=== PATIENT | female | born 1975 | race Caucasian/White ===

== ENCOUNTER 2021-09-17 23:15 | Emergency (ER) | payer OTHER ==
[2021-09-17] MEDS ORDERED: CEFAZOLIN SODIUM 1 GM/VIAL ONE (23:37)
[2021-09-17] MEDS ORDERED: TETANUS & DIPHTHERIA TOX,ADULT 0.5 ML VIAL ONE (23:38)
[2021-09-17] MEDS ORDERED: NA CHLORIDE 0.9% 50 ML ONE (23:40)
[2021-09-17 23:43] LABS: Absolute Lymphocytes (CBC) 2.9 K/uL (0.7-4.9); Hematocrit 37.3 % (36.0-45.0); Lymphocytes % 42.7 % (15.3-44.8); RBC Red Blood Cell Count 4.19 M/uL (3.86-4.86)
[2021-09-17 23:52] LABS: BUN Blood Urea Nitrogen 10 mg/dL (7-18); Bicarbonate 26 mmol/L (21-32); Glucose Level 112 mg/dL (74-106); Potassium 3.5 mmol/L (3.5-5.1); Sodium Level 134 mmol/L (136-145)
[2021-09-17] MEDS ORDERED: ONDANSETRON 4 MG/2 ML VIAL ONE (23:53)
[2021-09-17] MEDS ORDERED: MORPHINE 4 MG/ML SYR ONE (23:53)
[2021-09-18] MEDS ORDERED: LIDOCAINE 1% W/EPI 1:100,000 MDV 50 ML VIAL ONE (00:48)
[2021-09-18] MEDS ORDERED: LORazepam 2 MG/ML VIAL ONE (01:04)
[2021-09-18] MEDS ORDERED: MORPHINE 4 MG/ML SYR ONE (01:44)
--- NOTE | 2021-09-18 02:05 | EDPHYS ---
Physician Documentation [facility] Name: Laquita Abdi Age: 46 yrs Sex: Female : 1975 Arrival Date: 09/17/2021 Time: 23:19 Bed 4 Private MD: ED Physician Luis E Gerardo HPI: 09/17 23:30 This 46 yrs old Female presents to ER via EMS with complaints of Right Leg Injury. cp 23:30 The patient presents with an injury, a laceration, clean. The complaints affect the cp anterior right knee and medial aspect of right knee and lateral aspect of right knee. 23:30 Context: resulted from the patient falling, while walking, in bathroom onto tile floor, cp the patient can fully bear weight, Problem is a result from a previous injury: No. Onset: The symptoms/episode began/occurred just prior to arrival. Associated signs and symptoms: Pertinent positives: swelling, ecchymosis, Pertinent negatives fever. Treatment prior to arrival includes: no previous treatment. 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 Last tetanus immunization: unknown. - Social history:: Smoking status: Patient reports the use of cigarette tobacco products, smokes one pack cigarettes per day. Patient uses alcohol, only on a social basis. Patient/guardian denies using street drugs, IV drugs. ROS: 23:35 MS/extremity: Positive for injury or acute deformity, ecchymosis, laceration, of the cp anterior aspect right knee, Negative for paresthesias. 23:35 Eyes: Negative for injury, pain, redness, and discharge. cp 23:35 Constitutional: Negative for body aches, chills, fever, poor PO intake. 23:35 ENT: Negative for ear pain, sore throat, difficulty swallowing, difficulty handling secretions. 23:35 Cardiovascular: Negative for chest pain, palpitations. 23:35 Respiratory: Negative for cough, shortness of breath, wheezing. 23:35 Abdomen/GI: Negative for abdominal pain, nausea, vomiting, and diarrhea, constipation. 23:35 Back: Negative for pain at rest, pain with movement. 23:35 Neuro: Negative for altered mental status, dizziness, headache, loss of consciousness, numbness, syncope, weakness. 23:35 All other systems are negative. Exam: 23:40 Constitutional: The patient appears in no acute distress, alert, awake, non-toxic, well cp developed, well nourished. 23:40 Head/Face: Normocephalic, atraumatic. cp 23:40 Eyes: Periorbital structures: appear normal, Conjunctiva: normal, no exudate, no injection, Lids and lashes: appear normal, bilaterally. 23:40 ENT: External ear(s): Nose: is normal, Mouth: Lips: moist, Oral mucosa: moist, Posterior pharynx: Airway: no evidence of obstruction, patent. 23:40 Neck: ROM/movement: is normal, is supple, without pain, no range of motions limitations. 23:40 Chest/axilla: Inspection: normal, Palpation: is normal, no crepitus, no tenderness. 23:40 Cardiovascular: Rate: normal, Rhythm: regular. 23:40 Respiratory: the patient does not display signs of respiratory distress, Respirations: normal, Breath sounds: are clear throughout, no decreased breath sounds, no stridor, no wheezing. 23:40 Abdomen/GI: Inspection: abdomen appears normal, Palpation: abdomen is soft and non-tender, in all quadrants. 23:40 Back: pain, is absent, ROM is normal. 23:40 Musculoskeletal/extremity: Extremities: grossly normal except: noted in the anterior aspect lower knee and medial aspect of right lower right knee and lateral aspect of right lower right knee: ROM: full active range of motion, in the right knee, Pulses: noted to be 2+ in the right dorsalis pedis artery, the right leg Sensation intact. Tendon exam: specific tendon testing normal through active and passive range of motion 23:40 Skin: injury, laceration(s), the wound is approximately 25 cm(s), of the medial aspect of right knee and anterior aspect of right knee and lateral aspect of right knee, that can be described as clean, no foreign body, linear, mild bleeding. Vital Signs: 23:19 BP 122 / 102; Pulse 98; Resp 19 S; Pulse Ox 100% on R/A; Weight 88.45 kg (R); Height 5 lg3 ft. 9 in. (175.26 cm) (R); Pain 10/10; 23:30 BP 123 / 90; Pulse 93; Resp 16; Pulse Ox 100% on R/A; st1 09/18 00:00 BP 114 / 83; Pulse 88; Resp 16; Pulse Ox 100% on R/A; st1 01:06 BP 133 / 96; Pulse 92; Resp 14; Pulse Ox 98% on R/A; Pain 0/10; tw5 01:43 BP 119 / 78; Pulse 92; Resp 16; Pulse Ox 97% on R/A; tw5 02:37 BP 120 / 65; Pulse 90; Resp 16; Pulse Ox 100% on R/A; Pain 0/10; st1 03 23:19 Body Mass Index 28.80 (88.45 kg, 175.26 cm) lg3 Laceration: 02:01 Wound Repair of 25cm ( 9.8in ) subcutaneous laceration to medial aspect of right knee cp and lateral aspect of right knee and anterior aspect of right knee. Linear shaped.. Distal neuro/vascular/tendon intact. Anesthesia: Wound infiltrated with 16 mls of Lido/Marcaine. Wound prep: Moderate cleansing by nurse by me, Wound irrigation by me. Skin closed with 34 1-0 Clyde using staple gun. Dressed with Bacitracin, 4x4's, Kerlix. Patient tolerated well. MDM: 09/17 23:31 Patient medically screened. 09/18 00:45 Physician consultation: Tien Lindquist MD was called at 00:45, was contacted at 00:45, regarding patient's condition, recommends wound closure in ED and outpatient f/u for wound management. 01:00 Physician consultation: Ian Long MD was called at 01:00, was contacted at 01:00, regarding patient's condition, outpatient follow-up, Monday recommends wound closure and outpatient f/u. 02:05 Data reviewed: vital signs, nurses notes, radiologic studies, plain films. cp 02:05 Test interpretation: by ED physician or midlevel provider: plain radiologic studies. Counseling: I had a detailed discussion with the patient and/or guardian regarding: the historical points, exam findings, and any diagnostic results supporting the discharge/admit diagnosis, radiology results, the need for outpatient follow up, plastic surgery, to return to the emergency department if symptoms worsen or persist or if there are any questions or concerns that arise at home. Response to treatment: the patient's symptoms have markedly improved after treatment, and as a result, I will discharge patient. 09/17 23:28 Order name: CBC with Diff; Complete Time: 01:59 cp 09/17 23:28 Order name: BMP; Complete Time: 01:59 cp 09/18 01:59 Interpretation: Normal except: NA 134; GLUC 112. cp 09/17 23:28 Order name: XRAY Tib Fib RIGHT cp 09/17 23:28 Order name: XRAY Femur RIGHT cp 09/17 23:28 Order name: IV; Complete Time: 23:31 cp 09/18 02:08 Order name: Crutches; Complete Time: 02:33 cp Administered Medications: 09/17 23:44 Drug: Ancef (cefazolin) 1 grams Route: IVPB; Site: right antecubital; sm5 23:44 Drug: Tetanus-Diphtheria Toxoid Adult 0.5 ml {Fructose Loader: [employer]. Exp: sm5 12/04/2022. Lot #: [id number]. } Route: IM; Site: left deltoid; 23:55 CANCELLED (Duplicate Order): Zofran (ondansetron) 4 mg IM once st1 23:55 Drug: morphine 4 mg Route: IVP; Site: right antecubital; st1 23:55 Drug: Zofran (Ondansetron) 4 mg Route: IVP; Site: right antecubital; st1 09/18 01:04 Drug: Ativan (LORazepam) 1 mg Route: IVP; Site: right antecubital; tw5 01:19 Follow up: Response: No adverse reaction; Anxiety decreased; RASS: Alert and Calm (0) tw5 01:41 Drug: morphine 2 mg Route: IVP; Site: right antecubital; tw5 Disposition: 23:09 Co-signature as Attending Physician, Luis E Gerardo MD. [email or web address] Disposition Summary: 09/18/21 02:05 Discharge Ordered Location: Home cp Problem: new cp Symptoms: have improved cp Condition: Stable cp Diagnosis - Laceration without foreign body of knee - right knee cp Followup: cp - With: Ian Long MD - When: 09/21/2021 - Reason: Wound Recheck Discharge Instructions: - Discharge Summary Sheet cp - Crutch Use, Adult cp - Laceration Care, Adult cp - How to Use a Knee Immobilizer cp Forms: - Medication Reconciliation Form cp - Thank You Letter cp - Antibiotic Education cp - Prescription Opioid Use cp Prescriptions: - Cephalexin 500 mg Oral Capsule - take 1 capsule by ORAL route every 6 hours for 10 days; 40 capsule; Refills: 0, cp Product Selection Permitted - Ibuprofen 800 mg Oral Tablet - take 1 tablet by ORAL route every 8 hours As needed take with food; 30 tablet; cp Refills: 0, Product Selection Permitted - Tylenol-Codeine #3 300 mg-30 mg Oral - take 2 tablet by ORAL route every 8-10 hours; 15 tablet; Refills: 0, Product cp Selection Permitted Signatures: Dispatcher [employer] EDMS Daniel Bundy PA PA cp Virginia Charles RN RN lg3 Luis E Gerardo MD MD 7 Elba Holloway 5 Aimee Farias RN RN sm5 Opal Nichols RN RN st1 Corrections: (The following items were deleted from the chart) 09/17 23:55 23:54 Zofran (ondansetron) 4 mg IM once ordered. st1 st1
--- NOTE | 2021-09-18 02:05 | ER ---
Nurse's Notes [facility] Name: Laquita Abdi Age: 46 yrs Sex: Female : 1975 Arrival Date: 09/17/2021 Time: 23:19 Bed 4 Private MD: Diagnosis: Laceration without foreign body of knee-right knee Presentation: 09/17 23:19 Chief complaint: Patient states: fell after shower on wet tile. hit ledge where tile lg3 and wood meet together. Coronavirus screen: Client denies travel out of the [place] in the last 14 days. At this time, the client does not indicate any symptoms associated with coronavirus-19. Ebola Screen: No symptoms or risks identified at this time. Initial Sepsis Screen: Does the patient meet any 2 criteria? No. Patient's initial sepsis screen is negative. Does the patient have a suspected source of infection? No. Patient's initial sepsis screen is negative. Risk Assessment: Do you want to hurt yourself or someone else? Patient reports no desire to harm self or others. Onset of symptoms was September 17, 2021 at 23:00. 23:19 Method Of Arrival: [facility] lg3 23:19 Acuity: [facility]AN[facility] 2 lg3 Triage Assessment: 23:22 General: Appears in no apparent distress. uncomfortable, Behavior is calm, cooperative. lg3 Pain: Complains of pain in right leg Pain currently is 10 out of 10 on a pain scale. EENT: No deficits noted. No signs and/or symptoms were reported regarding the EENT system. Neuro: No deficits noted. Level of Consciousness is awake, alert, obeys commands, Oriented to person, place, time, situation. Cardiovascular: No deficits noted. Denies chest pain, nausea, shortness of breath, vomiting. Respiratory: No deficits noted. Airway is patent Trachea midline Respiratory effort is even, unlabored, Respiratory pattern is regular, symmetrical. GI: No deficits noted. No signs and/or symptoms were reported involving the gastrointestinal system. Abdomen is round non-distended. : No deficits noted. No signs and/or symptoms were reported regarding the genitourinary system. Derm: Wound noted lateral aspect of right knee, medial aspect of right knee and right knee. Musculoskeletal: Circulation, motion, and sensation intact. Capillary refill < 3 seconds, Range of motion: intact in all extremities. Injury Description: Avulsion sustained to lateral aspect of right knee, medial aspect of right knee and right knee. 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 Last tetanus immunization: unknown. - Social history:: Smoking status: Patient reports the use of cigarette tobacco products, smokes one pack cigarettes per day. Patient uses alcohol, only on a social basis. Patient/guardian denies using street drugs, IV drugs. Screenin:27 Abuse screen: Denies threats or abuse. Denies injuries from another. Nutritional lg3 screening: No deficits noted. Tuberculosis screening: No symptoms or risk factors identified. Fall Risk Fall in past 12 months (25 points). Assessment: 09/18 00:30 Reassessment: The patients right leg was cleaned with Sterile Water. The patient st1 tolerated it well. 00:49 General:. Derm:. Injury Description: Avulsion. tw5 01:06 General: "I am just feel like this isn't right, this don't feel right" Patient tw5 referring to provider stapling up leg. "I thought I was going to surgery.". General: Behavior is cooperative, anxious. 01:09 Neuro: Level of Consciousness is awake, alert, obeys commands, Oriented to person, tw5 place, time, situation, Intact. Respiratory: Airway is patent Trachea midline. 01:10 General: Daniel Bundy Stated he spoke to Dr. Huntley with plastic surgery for Laquita to tw5 follow up with on Monday.. Pain: Denies pain. 01:14 Injury Description: Wound cleaned with NS irrigation. tw5 Vital Signs: 09/17 23:19 BP 122 / 102; Pulse 98; Resp 19 S; Pulse Ox 100% on R/A; Weight 88.45 kg (R); Height 5 lg3 ft. 9 in. (175.26 cm) (R); Pain 10/10; 23:30 BP 123 / 90; Pulse 93; Resp 16; Pulse Ox 100% on R/A; st1 03 00:00 BP 114 / 83; Pulse 88; Resp 16; Pulse Ox 100% on R/A; st1 01:06 BP 133 / 96; Pulse 92; Resp 14; Pulse Ox 98% on R/A; Pain 0/10; tw5 01:43 BP 119 / 78; Pulse 92; Resp 16; Pulse Ox 97% on R/A; tw5 02:37 BP 120 / 65; Pulse 90; Resp 16; Pulse Ox 100% on R/A; Pain 0/10; st1 09/17 23:19 Body Mass Index 28.80 (88.45 kg, 175.26 cm) lg3 ED Course: 09/17 23:19 Patient arrived in ED. lg3 23:19 Daniel Bundy PA is PHCP. cp 23:19 Luis E Gerardo MD is Attending Physician. cp 23:20 Aimee Farias RN is Primary Nurse. 5 23:22 Triage completed. lg3 23:22 Arm band placed on right wrist. lg3 23:27 Patient has correct armband on for positive identification. Placed in gown. Bed in low lg3 position. Call light in reach. Side rails up X 1. blower and compressor assembler on. Pulse ox on. NIBP on. Door closed. Pillow given. 23:37 CBC with Diff Sent. sm5 23:37 BMP Sent. 5 09/18 00:10 XRAY Tib Fib RIGHT In Process Unspecified. EDMS 00:10 XRAY Femur RIGHT In Process Unspecified. EDMS 01:06 Assist provider with laceration repair on right knee that was between 20.1 to 30.0 cm tw5 using rosalie. Set up tray. Performed by Daniel MTZ. 02:03 Ian Long MD is Referral Physician. cp 02:33 IV discontinued, intact, bleeding controlled, No redness/swelling at site. Pressure st1 dressing applied. 02:34 patient was educated on crutch walking. patient was receptive. st1 02:35 Crutch training done. Knee immobilizer applied on right knee. st1 Administered Medications: 09/17 23:44 Drug: Ancef (cefazolin) 1 grams Route: IVPB; Site: right antecubital; sm5 23:44 Drug: Tetanus-Diphtheria Toxoid Adult 0.5 ml {Transitional Care Nurse: [employer]. Exp: sm5 12/04/2022. Lot #: [id number]. } Route: IM; Site: left deltoid; 23:55 CANCELLED (Duplicate Order): Zofran (ondansetron) 4 mg IM once st1 23:55 Drug: morphine 4 mg Route: IVP; Site: right antecubital; st1 23:55 Drug: Zofran (Ondansetron) 4 mg Route: IVP; Site: right antecubital; st1 0305 01:04 Drug: Ativan (LORazepam) 1 mg Route: IVP; Site: right antecubital; tw5 01:19 Follow up: Response: No adverse reaction; Anxiety decreased; RASS: Alert and Calm (0) tw5 01:41 Drug: morphine 2 mg Route: IVP; Site: right antecubital; tw5 Outcome: 02:05 Discharge ordered by MD. marrero 02:36 Discharged to home st1 02:36 Condition: improved 02:36 Discharge instructions given to patient, significant other, Instructed on discharge instructions, follow up and referral plans. no drinking with medication, medication usage, crutch walking, wound care, Demonstrated understanding of instructions, follow-up care, medications, Prescriptions given X 3. 02:38 Patient left the ED. st1 Signatures: Dispatcher [employer] EDMS Daniel Bundy PA PA cp Gibson, Lacie, RN RN lg3 Elba Holloway tw5 Aimee Farias RN RN 5 Opal Nichols RN RN st1 Corrections: (The following items were deleted from the chart) 01:14 01:06 Assist provider with laceration repair on right knee that was between 20.1 to tw5 30.0 cm using rosalie. Set up tray. Performed by Daniel MTZ tw5 01:14 01:10 General: Daniel Bundy Stated he spoke to Dr. Huntley for Laquita to follow up with tw5 on monday.. tw5
[2021-09-18 02:49] VITALS: BP 120/65; O2SAT 100
--- NOTE | 2021-09-18 21:47 | RAD REPORT ---
EXAM DESCRIPTION: RAD - Tib Fib Right - 09/18/2021 12:10 am CLINICAL HISTORY: 46 years, Female, fall COMPARISON: None. FINDINGS: 2 X-ray views of the right tibia and fibula. (Frontal lateral views) were performed. The re is a large area of anterior soft tissue gap within the region of the infrapatellar region. Finding s suggest intact infrapatellar tendon. No radiopaque foreign body could be seen. No areas of acute sary ny injuries were demonstrated. No gross articular abnormality is identified. There are no gross i ntraosseous lesions. No periosteal reaction were seen. IMPRESSION: Large area of anterior soft tissue gap within the infrapatellar region.. No evidence for acute bony injuries. Electronically signed by: Issa Barcenas MD 09/18/2021 12:22 AM DRIVER OPERATOR Due to temporary technical issues with the PACS/Fluency reporting system, reports are being signed by the in house radiologists without review as a courtesy to insure prompt reporting. The interpreting radiologist is fully responsible for the content of the report.
--- NOTE | 2021-09-18 21:48 | RAD REPORT ---
EXAM DESCRIPTION: RAD - Femur Right - 09/18/2021 12:10 am CLINICAL HISTORY: 46 years, Female, PAIN Femur Right COMPARISON: None. FINDINGS: 2 X-ray views of the Right femur were performed. There is no acute fracture or dislocation. There is no focal soft tissue swelling. There are no retained opaque foreign bodies. Limited evaluation of the knee and hip joints demonstrate no gross abnormalities. The bony pelvis is grossly normal in appearance. Area of soft tissue gap within the anterior aspect of the lower knee/infrapatellar area. IMPRESSION: Area of soft tissue gap within the anterior aspect of the lower knee/infrapatellar area. 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 The interpreting radiologist is fully responsible for the content of the report.
== END 2021-09-18 02:38 | disposition home or self-care (01) ==
LOC: ER 23:15
PROC: 0JQN0ZZ Repair Right Lower Leg Subcutaneous Tissue and Fascia, Open Approach (ICD-10-PCS; principal; 2021-09-18)
DX: S81.011A Laceration without foreign body, right knee, initial encounter (principal); W18.30XA Fall on same level, unspecified, initial encounter; Y93.01 Activity, walking, marching and hiking; Z23 Encounter for immunization; F17.210 Nicotine dependence, cigarettes, uncomplicated
CPT/HCPCS: 85025; 80048; 36415; 73552; 73590; 90471; 90714; 96375; 96374; 99285; 12006; J2405; J0690

== ENCOUNTER 2021-09-23 07:20 | Day surgery (SDC) | payer OTHER ==
[2021-09-23 08:17] LABS: Hematocrit 38.7 % (36.0-45.0); Lymphocytes % 32.6 % (15.3-44.8); MPV 6.8 fL (7.6-11.3)
[2021-09-23] MEDS ORDERED: ACETAMINOPHEN 500 MG TAB PO ONE (08:30)
[2021-09-23] MEDS ORDERED: CELECOXIB 100 MG CAPSULE PO ONE (08:30)
--- NOTE | 2021-09-23 08:45 | RAD REPORT ---
EXAM DESCRIPTION: RAD - Chest Single View - 09/23/2021 8:41 am CLINICAL HISTORY: PREOP Chest pain. COMPARISON: No comparisons FINDINGS: Portable technique limits examination quality. The lungs are grossly clear. The heart is normal in size. No displaced fractures. IMPRESSION: No acute intrathoracic process suspected.
[2021-09-23] MEDS ORDERED: LIDOCAINE 1% MPF 5 ML VIAL ONE (09:05)
[2021-09-23] MEDS ORDERED: MIDAZOLAM HCL 2 MG/2 ML INJ ONE (09:05)
[2021-09-23] MEDS ORDERED: propofoL 200 MG/20 ML VIAL IV ONE (09:05)
[2021-09-23] MEDS ORDERED: FENTANYL CITR 100 MCG/2 ML ONE (09:05)
[2021-09-23] MEDS ORDERED: METOCLOPRAMIDE 10 MG/2mL INJ ONE (09:06)
[2021-09-23] MEDS ORDERED: KETOROLAC 30 MG/ML INJ ONE (09:35)
[2021-09-23] MEDS: HYDROMORPHONE HCL 1 MG/ML INJ ONE ×4 (10:39→11:05)
[2021-09-23] MEDS ORDERED: ONDANSETRON 4 MG/2 ML VIAL ONE ×2 (10:41→12:00)
[2021-09-23] MEDS ORDERED: Ringers Lactate 1,000 ML IV ONE (11:01)
[2021-09-23] MEDS ORDERED: CODEINE 30MG/APAP 300MG TAB ONE (11:42)
[2021-09-23 12:22] VITALS: BP 104/68; TEMP 96.3; O2SAT 99
--- NOTE | 2021-09-23 21:09 | HP ---
Date of Admission: 09/23/2021 History Of Present Illness: The patient is a 46-year-old white female, who 5 days prior to office vi sit fell. The wound was compressed inferiorly. Inferior based flap of skin and subcutane ous tissue developed off the bone level closed with rosalie given and referred. Past Medical History: She has no medical problems. Past Surgical History: No previous surgery. Social History: She does smoke a pack a day. Does not drink. Allergies: SHE HAS NO ALLERGIES. Medications: She is on Keflex, antibiotics from the emergency room. Review of Systems: Otherwise unremarkable. Physical Examination: Vital Signs: She is 5 feet 9 inches, 190 pounds. Extremities: She has flap U shaped distally-based of the right leg below the level of the patella. It is approximately a 15-cm incision. Assessment: Ischemic flap. Plan: Debridement, flap advancement with VAC, skin graft. LETITIA/JOSSIE Voice ID: [id number]
--- NOTE | 2021-09-28 14:10 | OP ---
Surgeon: Ian Long MD Preoperative Diagnosis: Open wound of the right leg. Postoperative Diagnosis: Open wound of the right leg. Procedure: Debridement of skin and subcutaneous tissue, evacuation of hematoma, flap advancement margo sure. Anesthesia: General. Procedure In Detail: After satisfactory induction of general anesthesia, the right leg was prepped w ith Betadine scrub and Betadine paint,. Dry sterile drapes were applied in sterile manner. Drummond were removed. The distally based U-shaped flap had ischemic edges that were cut back to active bleed ing. This was removed approximately 2-3 cm in the vertical direction and approximately 15 cm horizon tally. It was sent to pathology. The wound was then jet lavaged, irrigated with 3 L of dilute Betad ine solution. Hematomas were evacuated. A 10 SHANELLE drain was brought inferiorly, sewn in place with 2- 0 silk and the wound was closed by flap advancement. The patellar area was undermined and advanced d istally. The inferior fold was undermined from the trauma. It was advanced cephalad and the wound c losed with vertical mattress of 2-0 nylon and rosalie. Dressed with Xeroform, Kerlix, and a knee imm obilizer with the knee in extension. The patient tolerated procedure well and returned to Recovery. LETITIA/JOSSIE Voice ID: [id number] Report ID: [id number]
== END 2021-09-23 12:15 | disposition home or self-care (01) ==
LOC: OR 07:20
PROVIDERS: ATTEND Specialist
PROC: 0JXN0ZZ Transfer Right Lower Leg Subcutaneous Tissue and Fascia, Open Approach (ICD-10-PCS; 2021-09-23)
PROC: 0JBN0ZZ Excision of Right Lower Leg Subcutaneous Tissue and Fascia, Open Approach (ICD-10-PCS; 2021-09-23)
PROC: 0JBN0ZZ Excision of Right Lower Leg Subcutaneous Tissue and Fascia, Open Approach (ICD-10-PCS; principal; 2021-09-23 09:00)
DX: S81.801A Unspecified open wound, right lower leg, initial encounter (principal); Z20.822 Contact with and (suspected) exposure to COVID-19
CPT/HCPCS: 11042; 14021; 93005; 87070; 85025; 36415; 87205; 81025; 88304; 87075; 71045; U0003; J2704; J2765; J2250; J3010; J1170 ×2; J7120; J2405 ×2

== ENCOUNTER 2021-10-12 07:28 | Day surgery (SDC) | payer OTHER ==
[2021-10-12 07:45] LABS: Specific Gravity 1.025 (1.005-1.030)
[2021-10-12] MEDS ORDERED: NA CHLORIDE 0.9% 50 ML ONE (07:47)
[2021-10-12] MEDS ORDERED: CEFAZOLIN SODIUM 1 GM/VIAL ONE (07:47)
[2021-10-12] MEDS ORDERED: Ringers Lactate 1,000 ML IV ONE (07:47)
[2021-10-12 07:58] LABS: Absolute Lymphocytes (CBC) 1.6 K/uL (0.7-4.9); Hematocrit 37.7 % (36.0-45.0); Lymphocytes % 30.8 % (15.3-44.8); MPV 7.2 fL (7.6-11.3); RBC Red Blood Cell Count 4.23 M/uL (3.86-4.86)
[2021-10-12] MEDS ORDERED: FENTANYL CITR 100 MCG/2 ML ONE (08:40)
[2021-10-12] MEDS ORDERED: propofoL 200 MG/20 ML VIAL IV ONE (08:40)
[2021-10-12] MEDS ORDERED: ONDANSETRON 4 MG/2 ML VIAL ONE ×2 (08:41→10:18)
[2021-10-12] MEDS ORDERED: LIDOCAINE 2% MPF 5 ML VIAL ONE (08:41)
[2021-10-12] MEDS ORDERED: MIDAZOLAM HCL 2 MG/2 ML INJ ONE (08:41)
[2021-10-12] MEDS ORDERED: dexAMETHasone 10 MG/ML VIAL ONE (08:41)
[2021-10-12] MEDS ORDERED: KETOROLAC 30 MG/ML INJ ONE (09:48)
[2021-10-12] MEDS ORDERED: MORPHINE 10 MG/ML VIAL ONE (09:58)
[2021-10-12] MEDS ORDERED: MORPHINE 4 MG/ML SYR ONE (10:18)
[2021-10-12] MEDS: MEPERIDINE HCL 25 MG/ML SYR ONE ×2 (10:20→10:30)
[2021-10-12 12:07] VITALS: BP 101/75; O2SAT 100
[2021-10-12 12:10] VITALS: TEMP 97.2
--- NOTE | 2021-10-12 21:07 | OP ---
Surgeon: Ian Long MD Preoperative Diagnosis: Dry gangrene of the right knee. Postoperative Diagnosis: Dry gangrene of the right knee. Procedure Performed: Debridement of skin and subcutaneous tissue approximately 9 cm long with flap a dvancement closure. Anesthesia: General. Procedure In Detail: After satisfactory induction of general anesthesia, the right leg was prepped w ith Betadine scrub and Betadine paint. Dry sterile drapes were applied in the usual manner. Scalpel was used to excise the necrotic tissue. This was a full-thickness skin and subcutaneous tissue with flap undermined cephalad. The wound was jet lavaged and irrigated with 3 L of dilute Betadine solution. The vertical and horizontal mattress sutures of 3-0 Prolene sutures were placed with stapl es in between and dressed with Xeroform, Kerlix, and a knee immobilizer. The patient tolerated proce dure well and returned to recovery room. Estimated blood loss was about 10 cc. LETITIA/JOSSIE Voice ID: [id number] Report ID: [id number]
--- NOTE | 2021-10-12 21:27 | HP ---
Date of Admission: 10/12/2021 History Of Present Illness: 46-year-old white female who is status post right leg laceration; this o ccurred on 09/17, treated in the emergency room with closure, then went to the hospital for debrideme nt and closure. At this time, she has dry gangrene, requiring repeat resection. Past Medical History: No medical problems. Past Surgical History: She had a previous debridement and closure. Social History: No smoking. Drinks alcohol occasionally. Allergies: TO KEFLEX. Review of Systems: Otherwise unremarkable. Physical Examination: Vital Signs: She is 5 feet 9 inches, 190 pounds. Extremities: Right leg at her knee, transverse laceration with dry gangrene approximately 9 cm long and approximately 1 cm wide. Assessment: Dry gangrene. Plan: Debridement and flap closure. LETITIA/JOSSIE Voice ID: [id number]
== END 2021-10-12 11:20 | disposition home or self-care (01) ==
LOC: OR 07:28
PROVIDERS: ATTEND Specialist
PROC: 0HXKXZZ Transfer Right Lower Leg Skin, External Approach (ICD-10-PCS; 2021-10-12)
PROC: 0JBN0ZZ Excision of Right Lower Leg Subcutaneous Tissue and Fascia, Open Approach (ICD-10-PCS; principal; 2021-10-12 09:00)
DX: S81.001A Unspecified open wound, right knee, initial encounter (principal); I96 Gangrene, not elsewhere classified; Z20.822 Contact with and (suspected) exposure to COVID-19; Z88.1 Allergy status to other antibiotic agents
CPT/HCPCS: 85025; 36415; 81025; 88304; 11042; 14020; U0003; J2704; J2250; J3010; J1100; J2175; J7120; J2405 ×2; J0690

== ENCOUNTER 2021-10-21 14:49 | Inpatient (IN) | payer OTHER ==
--- NOTE | 2021-10-21 18:00 | P.HP ---
Certification for Inpatient Patient admitted to: Inpatient With expected LOS: >2 Midnights Practitioner: I am a practitioner with admitting privileges, knowledge of patient current condition, hospital course, and medical plan of care. Services: Services provided to patient in accordance with Admission requirements found in Title 42 Section 412.3 of the Code of Federal Regulations Patient History Date of Service: 10/21/21 Reason for admission: Non-healing right knee wound History of Present Illness: 46-year-old woman with no known past medical history who developed right knee laceration, status post debridement, wound gaping was directed by Dr. Long to the hospital to be directly admitted for further debridement and wound care management. Patient denies any fever, she denies pain. She sustained the laceration from a fall. She has taken multiple antibiotics including clindamycin and Bactrim with no improvement. Allergies No Known Allergies Allergy (Verified 10/12/21 08:31) Home Medications: Cephalexin [Keflex*] 1 cap PO Q6H 09/23/21 Codeine/APAP [Tylenol #3*] 2 tab PO Q8HP PRN 09/23/21 Ibuprofen 800 mg PO Q8H 09/23/21 - Past Medical/Surgical History -: None -: Right knee wound suturing and debridement - Family History Father -: Diabetes - Social History Smoking Status: Current every day smoker Alcohol use: Yes CD- Drugs: No Place of Residence: Home Review of Systems Other: Except as documented, all other systems reviewed and negative. Physical Examination - Physical Exam General: Alert, In no apparent distress, Oriented x3 HEENT: Atraumatic, Normocephalic, Mucous membr. moist/pink, Sclerae nonicteric Neck: Supple, JVD not distended Respiratory: Clear to auscultation bilaterally, Normal air movement Cardiovascular: No edema, Regular rate/rhythm, Normal S1 S2, No murmurs Capillary refill: <2 Seconds Gastrointestinal: Normal bowel sounds, Soft and benign, Non-distended, No tenderness Musculoskeletal: No swelling, No erythema Integumentary: Other (old Laceration across the inferior aspect of the right knee) Neurological: Normal speech, Normal strength at 5/5 x4 extr, Cranial nerves 3-12 intact Lymphatics: No axilla or inguinal lymphadenopathy Assessment and Plan - Problems (Diagnosis) (1) Non-healing wound Current Visit: Yes Status: Acute (2) Infected wound Current Visit: Yes Status: Acute - Plan Admit patient to the medical floor. Start IV cefepime and vancomycin. Dr. Long consulted. IV hydration Regular diet. Keep n.p.o. post midnight for possible debridement tomorrow. Check CBC, PT/INR and blood chemistry. - Advance Directives Does patient have a Living Will: No Does patient have a Durable POA for Healthcare: No
[2021-10-21] MEDS ORDERED: ACETAMINOPHEN 500 MG TAB PO PRN (18:09)
[2021-10-21] MEDS ORDERED: NA CHLORIDE 0.9% 1,000 ML IV SCH (18:09)
[2021-10-21] MEDS ORDERED: VANCOMYCIN 1.25 GM in NA CHLORIDE 0.9% 250 ML IVPB SCH (18:09)
[2021-10-21] MEDS ORDERED: ONDANSETRON 4 MG/2 ML VIAL IV PRN (18:09)
[2021-10-21 18:35] VITALS: BMI 28.0
[2021-10-21 18:47] LABS: Absolute Lymphocytes (CBC) 2.7 K/uL (0.7-4.9); Hematocrit 40.6 % (36.0-45.0); Lymphocytes % 33.1 % (15.3-44.8); MPV 7.1 fL (7.6-11.3); RBC Red Blood Cell Count 4.61 M/uL (3.86-4.86)
[2021-10-21 18:48] LABS: Protime INR 1.04
[2021-10-21 19:00] LABS: Potassium 4.1 mmol/L (3.5-5.1)
[2021-10-21] MEDS: CEFEPIME 1 GM in NA CHLORIDE 0.9% 100 ML IV SCH ×2 (21:00→21:57)
[2021-10-21] MEDS: VANCOMYCIN 1.5 GM in NA CHLORIDE 0.9% 500 ML IVPB SCH ×2 (21:00→21:57)
[2021-10-21 22:10] VITALS: BP 107/68; TEMP 98
--- NOTE | 2021-10-22 19:27 | P.DS ---
Admission Date: 10/21/21 Discharge Date: 10/22/21 Disposition: AMA-LEFT AGAINST MEDICAL ADVIC Discharge Condition: FAIR Reason for Admission: Non-healing right knee wound - Problems (1) Non-healing wound Status: Acute (2) Infected wound Status: Acute Brief History of Present Illness: 46-year-old woman with no known past medical history who developed right knee laceration, status post debridement, wound gaping was directed by Dr. Long to the hospital to be directly admitted for further debridement and wound care management. Patient denies any fever, she denies pain. She sustained the laceration from a fall. She has taken multiple antibiotics including clindamycin and Bactrim with no improvement. Hospital Course: Admitted to the medical floor and started on IV antibiotics for possible wound infection. Dr. Long was consulted to evaluate for debridement per his recommendation. I am told patient decided to sign out AGAINST MEDICAL ADVICE earlier this morning. Vital Signs/Physical Exam: Temp Pulse Resp BP Pulse Ox 98.0 F 78 18 107/68 96 10/21/21 20:00 10/21/21 20:00 10/21/21 20:00 10/21/21 20:00 10/21/21 20:00 Laboratory Data at Discharge: WBC Cancelled 10/22/21 05:00 Hgb Cancelled 10/22/21 05:00 Hct Cancelled 10/22/21 05:00 Plt Count Cancelled 10/22/21 05:00 PT 11.5 SECONDS (9.5-12.5) 10/21/21 18:32 INR 1.04 10/21/21 18:32 Sodium Cancelled 10/22/21 05:00 Potassium Cancelled 10/22/21 05:00 BUN Cancelled 10/22/21 05:00 Creatinine Cancelled 10/22/21 05:00 Glucose Cancelled 10/22/21 05:00 Phosphorus Cancelled 10/22/21 05:00 Magnesium Cancelled 10/22/21 05:00 Home Medications: Cephalexin [Keflex*] 1 cap PO Q6H 09/23/21 Codeine/APAP [Tylenol #3*] 2 tab PO Q8HP PRN 09/23/21 Ibuprofen 800 mg PO Q8H 09/23/21
== END 2021-10-22 06:30 | disposition left against medical advice (07) | DRG 863 ==
LOC: 2ND 17:00
PROVIDERS: ADMIT Internal Medicine; ATTEND Internal Medicine
DX: T81.49XA Infection following a procedure, other surgical site, initial encounter (principal); L08.89 Other specified local infections of the skin and subcutaneous tissue; T81.89XA Other complications of procedures, not elsewhere classified, initial encounter; Z72.0 Tobacco use; Z20.822 Contact with and (suspected) exposure to COVID-19; Z53.29 Procedure and treatment not carried out because of patient's decision for other reasons
CPT/HCPCS: 36415; 80048; 85025; 85610; J0692; J3370; J7040; U0003